=== PATIENT | male | born 1970 | race Hispanic/Latino ===

== ENCOUNTER 2018-06-27 12:51 | Emergency (ER) | payer OTHER ==
[2018-06-27] MEDS ORDERED: TRAMADOL HCL 50 MG TABLET ONE (15:03)
[2018-06-27] MEDS ORDERED: GADODIAMIDE 10 MMOL/20 ML ML IV ONE (15:50)
== END 2018-06-27 18:32 | disposition home or self-care (01) ==
LOC: EDH 12:51
DX: S83.212A Bucket-handle tear of medial meniscus, current injury, left knee, initial encounter (principal); X58.XXXA Exposure to other specified factors, initial encounter; Y93.89 Activity, other specified; Y92.69 Other specified industrial and construction area as the place of occurrence of the external cause; Y99.8 Other external cause status
CPT/HCPCS: 29505; 73562; 73723; 99284; A9579

== ENCOUNTER 2022-04-19 14:02 | Emergency (ER) | payer OTHER ==
[~2022-04-19] VITALS: Ht 160 cm; Wt 77.1 kg
[2022-04-19] MEDS ORDERED: KETOROLAC 30MG VIAL (30MG/ML) IM ONE (14:30)
[2022-04-19] MEDS ORDERED: NAPR-1196 PO (15:11)
[2022-04-19 15:55] VITALS: BP 131/72
== END 2022-04-19 15:59 | disposition home or self-care (01) ==
LOC: EDH 14:02
DX: S43.101A Unspecified dislocation of right acromioclavicular joint, initial encounter (principal); Z79.1 Long term (current) use of non-steroidal anti-inflammatories (NSAID); X58.XXXA Exposure to other specified factors, initial encounter; Y93.89 Activity, other specified; Y92.89 Other specified places as the place of occurrence of the external cause; Y99.8 Other external cause status
CPT/HCPCS: 73030; 96372; 99283; J1885